=== PATIENT | male | born 2000 | race Caucasian/White ===

== ENCOUNTER 2024-02-04 15:00 | Emergency (ER) | payer OTHER ==
--- OUTSIDE RECORDS SUMMARY | 2024-02-04 15:05 | XMS REPORT | Continuity of Care Document ---
Author Name Unknown Address [address] [place] [address] [place] [address] thconnect Address [address] [facility] [address] [place] [address] Care Team Providers Care Turn Out Name Role Phone FEDEIRCO ORDOÑEZ Attending Clinician Unavailable LEORA GREGORY Attending Clinician Unavailab le LAB90 Attending Clinician Unavailable Payers Payer Name Policy Type Policy Number Effective Date Expirati on Date Source [employer] 2 [id number] 2022 00:00:00 Problems Condition Name Condition Details Condition Category Status Onset Date Resolution Date Last Treatment Date Treating Clinician Comments Source Overweight (BMI 25.0-29.9) Overweight (BMI 25.0-29.9) Disease Active 04-09 00:00: 00 Carlota Seybold - Externa l Elevated liver function tests Elevated liver function tests Disease Active - 00:00: 00 Carlota Seybold - Externa l Attention deficit hyperactiv ity disorder (ADHD), predominan tly inattentiv e type Attention deficit hyperactiv ity disorder (ADHD), predominan tly inattentiv e type Disease Active - 00:00: 00 Carlota Seybold - Externa l Acquired hypothyroi dism Acquired hypothyroi dism Disease Active 2021-08 00:00: 00 Carlota Seybold - Externa l Snoring Snoring Disease Active 2021-08 00:00: 00 Carlota Seybold - Externa l Fatty liver disease, nonalcohol ic Fatty liver disease, nonalcohol ic Disease Active 08-09 00:00: 00 Overview: Formattin g of this note might be different from the original. Confirmed with US Carlota Reid Externa guero Allergies, Adverse Reactions, Alerts Allergy Name Allergy Type Status Severity Reaction(s) Onset Date Inactive Date Treating Clinician Comments Source Azithrom ycin Dihydrat e Propensi ty to adverse reaction s Active Other 2015-08 00:00: 00 MOC is not sure which one of her kids is allergic to this; Mom thinks it was other child who vomited with Zithromax Carlota Flores - Externa l Cefdinir Propensi ty to adverse reaction s Active Rash 2015-08 00:00: 00 Carlota Flores - Externa l Social History Social Habit Start Date Stop Date Quantity Comments Source Gender identity 2023-02-25 16:00:16 Identifies as male gender (finding) Carlota Flores - External Sexual orientation K alan Flores - External History of tobacco use Cigar Smoker Carlota Flores - External History SDOH Alcohol Frequency Carlota reed - External History SDOH Alcohol Std Drinks Carlota briseno - External History SDOH Alcohol Binge Carlota Flores - External Alcohol intake 2023-07-26 00:00:00 2023-07-26 00:00:00 Current drinker of alcohol (finding) Carlota Flores - External History of Social function 2023-04-09 00:00:00 2023-04-09 00:00:00 Carlota Flores - External Alcohol Comment 2022-08-17 00:00:00 2022-08-17 00:00:00 social Carlota Flores - External Sex Assigned At 2000 00:00:00 2000 00:00:00 M Carlota Flores - External Smoking Status Start Date Stop Date Source Tobacco smoking consumption unknown Carlota Reid Ext ernal Occasional tobacco smoker 2022-08-17 00:00:00 Carlota Flores - External Medications Ordered Medication Name Filled Medication Name Start Date Stop Date Current Medication? Ordering Clinician Indication Dosage Frequency Signature (SIG) Comments Components Source Amphetamine -Dextroamph etamine (ADDERALL XR, 20MG,) 20 MG oral Capsule 24 Hour Sustained Release 2022-08 00:00: 00 Yes [id number] 20mg Take 1 capsule (20 mg total) by mouth every morning. Carlota jack Amphetamine -Dextroamph etamine (ADDERALL XR, 20MG,) 20 MG oral Capsule 24 Hour Sustained Release 1 1-12 00:00: 00 18 00:00 :00 No [id number] 20mg Take 1 capsule (20 mg total) by mouth every morning. Carlota jack Amphetamine -Dextroamph etamine (ADDERALL XR, 20MG,) 20 MG oral Capsule 24 Hour Sustained Release 2022-0 9-01 00:00: 00 Yes [id number] 20mg Take 1 capsule (20 mg total) by mouth every morning. Carlota jack Amphetamine -Dextroamph etamine (ADDERALL XR, 20MG,) 20 MG oral Capsule 24 Hour Sustained Release 2022-0 7-20 00:00: 00 04-09 00:00 :00 No [id number] 20mg Take 1 capsule (20 mg total) by mouth every morning Carlota jack Levothyroxi ne Sodium 100 MCG oral Tablet 2022-0 7-05 00:00: 00 Yes [id number] 100ug Take 1 tablet (100 mcg total) by mouth daily Carlota jack Amphetamine -Dextroamph etamine 20 MG oral Capsule 24 Hour Sustained Release 2022-0 2-13 00:00: 00 Yes [id number] 20mg Take 1 capsule (20 mg total) by mouth every morning Carlota jack Amphetamine -Dextroamph etamine 10 MG oral Capsule 24 Hour Sustained Release 2022-0 2-09 00:00: 00 09-21 00:00 :00 No [id number] 10mg Take 1 capsule (10 mg total) by mouth every morning Carlota jack Levothyroxi ne Sodium 100 MCG oral Tablet 2022-0 1-10 00:00: 00 Yes [id number] 100ug Take 1 tablet (100 mcg total) by mouth daily Carlota jack Amphetamine -Dextroamph etamine 10 MG oral Capsule 24 Hour Sustained Release 2022-0 1-09 00:00: 00 Yes [id number] 10mg Take 1 capsule (10 mg total) by mouth every morning Carlota Seybold - Externa l Levothyroxi ne Sodium 100 MCG oral Tablet 08-17 00:00: 00 Yes [id number] 100ug Take 1 tablet (100 mcg total) by mouth daily Carlota Flores - Externa l Levothyroxi ne Sodium 100 MCG oral Tablet 08-17 00:00: 00 08-17 00:00 :00 No [id number] 50ug Take 0.5 tablets (50 mcg total) by mouth daily Carlota Torresa l Thyroid 120 MG oral Tablet 2021-08 16:01: 35 05-18 00:00 :00 No 1{tbl} Take 1 tablet by mouth daily Carlota Flores - Briana l Thyroid 120 MG oral Tablet 2021-08 00:00: 00 Yes [id number] 1{tbl} Take 1 tablet by mouth daily Carlota Flores - Externa l Immunizations Ordered Immunization Name Filled Immunization Name Date Status Comments Source Influenza Virus Vaccine, No Preserv, age 6 months and up 2019-05-10 00:00:00 Completed Carlota Flores - External Influenza Virus Vaccine, No Preserv, age 6 months and up 2019-05-10 00:00:00 Completed Carlota Flores - External Influenza Virus Vaccine, No Preserv, age 6 months and up 2019-05-10 00:00:00 Completed Carlota Flores - External Influenza Virus Vaccine, No Preserv, age 6 months and up 2019-05-10 00:00:00 Completed Carlota Flores - External Meningococcal Vaccine- Conjugate(Menactra) 2018-11-24 00:00:00 Completed Carlota Flores - External Meningococcal Vaccine- Conjugate(Menactra) 2018-11-24 00:00:00 Completed Carlota Flores - External Meningococcal Vaccine- Conjugate(Menactra) 2018-11-24 00:00:00 Completed Carlota Flores - External Meningococcal Vaccine- Conjugate(Menactra) 2018-11-24 00:00:00 Completed Carlota Flores - External DTaP Unspecified 2013-10-02 00:00:00 Completed Carlota Flores - External DTaP Unspecified 2013-10-02 00:00:00 Completed Carlota Seybold - External Meningococcal Vaccine- Conjugate(Menactra) 2013-10-02 00:00:00 Completed Carlota Schneiderold - External Tdap- (Boostrix, Adacel) 2013-10-02 00:00:00 Completed Carlota Lealybold - External DTaP Unspecified 2013-10-02 00:00:00 Completed Carlota Lealybold - External Meningococcal Vaccine- Conjugate(Menactra) 2013-10-02 00:00:00 Completed Carlota Schneiderold - External Tdap- (Boostrix, Adacel) 2013-10-02 00:00:00 Completed Carolta Seybold - External Meningococcal Vaccine- Conjugate(Menactra) 2013-10-02 00:00:00 Completed Carlota Seybold - External Tdap- (Boostrix, Adacel) 2013-10-02 00:00:00 Completed Carlota Schneiderold - External DTaP Unspecified 2013-10-02 00:00:00 Completed Carlota Flores - External Meningococcal Vaccine- Conjugate(Menactra) 2013-10-02 00:00:00 Completed Carlota Schneiderold - External Tdap- (Boostrix, Adacel) 2013-10-02 00:00:00 Completed Carlota Schneiderold - External Varicella Vaccine 2007-10-11 00:00:00 Completed Carlota Schneiderold - External Varicella Vaccine 2007-10-11 00:00:00 Completed Carlota Schneiderold - External Varicella Vaccine 2007-10-11 00:00:00 Completed Carlota Schneiderold - External Varicella Vaccine 2007-10-11 00:00:00 Completed Carlota Flores - External Polio Vaccine 2006-10-05 00:00:00 Completed Carlota Flores - External DTaP Unspecified 2006-10-05 00:00:00 Completed Carlota Flores - External MMR- Measles, Mumps, Rubella 2006-10-05 00:00:00 Completed Carlota Flores - External IPV- Inactivated Polio Vaccine 2006-10-05 00:00:00 Completed Carlota Schneiderold - External DTaP 2006-10-05 00:00:00 Completed Carlota Schneiderold - External Polio Vaccine 2006-10-05 00:00:00 Completed Carlota Flores - External DTaP Unspecified 2006-10-05 00:00:00 Completed Carlota Seybold - External DTaP Unspecified 2006-10-05 00:00:00 Completed Carlota Seybold - External MMR- Measles, Mumps, Rubella 2006-10-05 00:00:00 Completed Carlota Seybold - External IPV- Inactivated Polio Vaccine 2006-10-05 00:00:00 Completed Carlota Seybold - External DTaP 2006-10-05 00:00:00 Completed Carlota Seybold - External Polio Vaccine 2006-10-05 00:00:00 Completed Carlota Seybold - External MMR- Measles, Mumps, Rubella 2006-10-05 00:00:00 Completed Carlota Seybold - External IPV- Inactivated Polio Vaccine 2006-10-05 00:00:00 Completed Carlota Seybold - External DTaP Unspecified 2006-10-05 00:00:00 Completed Carlota Seybold - External MMR- Measles, Mumps, Rubella 2006-10-05 00:00:00 Completed Carlota Seybold - External IPV- Inactivated Polio Vaccine 2006-10-05 00:00:00 Completed Carlota Seybold - External DTaP 2006-10-05 00:00:00 Completed Carlota Lealybold - External HEPATITIS A- PEDI/ADOL 2006-03-02 00:00:00 Completed Carlota Seybold - External HEPATITIS A- PEDI/ADOL 2006-03-02 00:00:00 Completed Carlota Seybold - External HEPATITIS A- PEDI/ADOL 2006-03-02 00:00:00 Completed Carlota Lealybold - External HEPATITIS A- PEDI/ADOL 2006-03-02 00:00:00 Completed Carlota Seybold - External HEPATITIS A- PEDI/ADOL 2005-08-31 00:00:00 Completed Carlota Flores - External Pneumococcal Vaccine, Conjugate 7 2005-08-31 00:00:00 Completed Carlota Lealybold - External Pneumococcal Vaccine, Conjugate 13 2005-08-31 00:00:00 Completed Carlota Seybold - External HEPATITIS A- PEDI/ADOL 2005-08-31 00:00:00 Completed Carlota Lealybold - External Pneumococcal Vaccine, Conjugate 7 2005-08-31 00:00:00 Completed Carlota Lealybold - External HEPATITIS A- PEDI/ADOL 2005-08-31 00:00:00 Completed Carlota Flores - External Pneumococcal Vaccine, Conjugate 13 2005-08-31 00:00:00 Completed Carlota Schneiderold - External Pneumococcal Vaccine, Conjugate 7 2005-08-31 00:00:00 Completed Carlota Flores - External HEPATITIS A- PEDI/ADOL 2005-08-31 00:00:00 Completed Carlota Schneiderold - External Pneumococcal Vaccine, Conjugate 7 2005-08-31 00:00:00 Completed Carlota Flores - External Pneumococcal Vaccine, Conjugate 13 2005-08-31 00:00:00 Completed Carlota Seybold - External DTaP Unspecified 2004-03-10 00:00:00 Completed Carlota Lealybold - External HIB- Haemophilus Influenzae Type B 2004-03-10 00:00:00 Completed Carlota Seybold - External DTaP Unspecified 2004-03-10 00:00:00 Completed Carlota Seybold - External DTaP 2004-03-10 00:00:00 Completed Carlota Seybold - External DTaP Unspecified 2004-03-10 00:00:00 Completed Carlota Seybold - External HIB- Haemophilus Influenzae Type B 2004-03-10 00:00:00 Completed Carlota Seybold - External DTaP 2004-03-10 00:00:00 Completed Carlota Seybold - External HIB- Haemophilus Influenzae Type B 2004-03-10 00:00:00 Completed Carlota Seybold - External DTaP Unspecified 2004-03-10 00:00:00 Completed Carlota Seybold - External HIB- Haemophilus Influenzae Type B 2004-03-10 00:00:00 Completed Carlota Seybold - External DTaP 2004-03-10 00:00:00 Completed Carlota Seybold - External MMR- Measles, Mumps, Rubella 2003-12-11 00:00:00 Completed Carlota Seybold - External MMR- Measles, Mumps, Rubella 2003-12-11 00:00:00 Completed Carlota Seybold - External MMR- Measles, Mumps, Rubella 2003-12-11 00:00:00 Completed Carlota Seybold - External MMR- Measles, Mumps, Rubella 2003-12-11 00:00:00 Completed Carlota Lealybold - External Polio Vaccine 2003-09-10 00:00:00 Completed Carlota Schneiderold - External IPV- Inactivated Polio Vaccine 2003-09-10 00:00:00 Completed Carlota Seybold - External Varicella Vaccine 2003-09-10 00:00:00 Completed Carlota Seybold - External Polio Vaccine 2003-09-10 00:00:00 Completed Carlota Setankold - External IPV- Inactivated Polio Vaccine 2003-09-10 00:00:00 Completed Carlota Setankold - External Varicella Vaccine 2003-09-10 00:00:00 Completed Carlota Seybold - External Polio Vaccine 2003-09-10 00:00:00 Completed Carlota Seybold - External IPV- Inactivated Polio Vaccine 2003-09-10 00:00:00 Completed Carlota Seybold - External Varicella Vaccine 2003-09-10 00:00:00 Completed Carlota Seybold - External IPV- Inactivated Polio Vaccine 2003-09-10 00:00:00 Completed Carlota Lealybold - External Varicella Vaccine 2003-09-10 00:00:00 Completed Carlota Flores - External Hepatitis B, Adolescent Or Pediatric 2003-06-07 00:00:00 Completed Carlota Schneiderold - External Hepatitis B, Adolescent Or Pediatric 2003-06-07 00:00:00 Completed Carlota Schneiderold - External Hepatitis B, Adolescent Or Pediatric 2003-06-07 00:00:00 Completed Carlota Schneiderold - External Hepatitis B, Adolescent Or Pediatric 2003-06-07 00:00:00 Completed Carlota Flores - External DTaP Unspecified 2003-04-02 00:00:00 Completed Carlota Flores - External HIB- Haemophilus Influenzae Type B 2003-04-02 00:00:00 Completed Carlota Flores - External Pneumococcal Vaccine, Conjugate 7 2003-04-02 00:00:00 Completed Carlota Flores - External DTaP Unspecified 2003-04-02 00:00:00 Completed Carlota Flores - External DTaP 2003-04-02 00:00:00 Completed Carlota Schneiderold - External Pneumococcal Vaccine, Conjugate 13 2003-04-02 00:00:00 Completed Carlota Flores - External DTaP Unspecified 2003-04-02 00:00:00 Completed Carlota Flores - External HIB- Haemophilus Influenzae Type B 2003-04-02 00:00:00 Completed Carlota Seybold - External Pneumococcal Vaccine, Conjugate 7 2003-04-02 00:00:00 Completed Carlota Seybold - External DTaP 2003-04-02 00:00:00 Completed Carlota Seybold - External Pneumococcal Vaccine, Conjugate 13 2003-04-02 00:00:00 Completed Carlota Seybold - External HIB- Haemophilus Influenzae Type B 2003-04-02 00:00:00 Completed Carlota Seybold - External Pneumococcal Vaccine, Conjugate 7 2003-04-02 00:00:00 Completed Carlota Seybold - External DTaP Unspecified 2003-04-02 00:00:00 Completed Carlota Seybold - External HIB- Haemophilus Influenzae Type B 2003-04-02 00:00:00 Completed Carlota Seybold - External Pneumococcal Vaccine, Conjugate 7 2003-04-02 00:00:00 Completed Carlota Seybold - External DTaP 2003-04-02 00:00:00 Completed Carlota Seybold - External Pneumococcal Vaccine, Conjugate 13 2003-04-02 00:00:00 Completed Carlota Seybold - External DTaP Unspecified 2003-01-30 00:00:00 Completed Carlota Seybold - External HIB- Haemophilus Influenzae Type B 2003-01-30 00:00:00 Completed Carlota Seybold - External IPV- Inactivated Polio Vaccine 2003-01-30 00:00:00 Completed Carlota Seybold - External DTaP 2003-01-30 00:00:00 Completed Carlota Seybold - External Polio Vaccine 2003-01-30 00:00:00 Completed Carlota Seybold - External DTaP Unspecified 2003-01-30 00:00:00 Completed Carlota Seybold - External DTaP Unspecified 2003-01-30 00:00:00 Completed Carlota Seybold - External HIB- Haemophilus Influenzae Type B 2003-01-30 00:00:00 Completed Carlota Seybold - External IPV- Inactivated Polio Vaccine 2003-01-30 00:00:00 Completed Carlota Seybold - External DTaP 2003-01-30 00:00:00 Completed Carlota Seybold - External Polio Vaccine 2003-01-30 00:00:00 Completed Carlota Seybold - External HIB- Haemophilus Influenzae Type B 2003-01-30 00:00:00 Completed Carlota Seybold - External IPV- Inactivated Polio Vaccine 2003-01-30 00:00:00 Completed Carlota Seybold - External DTaP Unspecified 2003-01-30 00:00:00 Completed Carlota Seybold - External HIB- Haemophilus Influenzae Type B 2003-01-30 00:00:00 Completed Carlota Seybold - External IPV- Inactivated Polio Vaccine 2003-01-30 00:00:00 Completed Carlota Seybold - External DTaP 2003-01-30 00:00:00 Completed Carlota Seybold - External Polio Vaccine 2003-01-30 00:00:00 Completed Carlota Seybold - External DTaP Unspecified 2002 00:00:00 Completed Carlota Seybold - External Hepatitis B, Adolescent Or Pediatric 2002 00:00:00 Completed Carlota Seybold - External HIB- Haemophilus Influenzae Type B 2002 00:00:00 Completed Carlota Seybold - External IPV- Inactivated Polio Vaccine 2002 00:00:00 Completed Carlota Seybold - External DTaP 2002 00:00:00 Completed Carlota Seybold - External Polio Vaccine 2002 00:00:00 Completed Carlota Seybold - External DTaP Unspecified 2002 00:00:00 Completed Carlota Seybold - External DTaP Unspecified 2002 00:00:00 Completed Carlota Lealybold - External Hepatitis B, Adolescent Or Pediatric 2002 00:00:00 Completed Carlota Seybold - External HIB- Haemophilus Influenzae Type B 2002 00:00:00 Completed Carlota Seybold - External IPV- Inactivated Polio Vaccine 2002 00:00:00 Completed Carlota Seybold - External DTaP 2002 00:00:00 Completed Carlota Seybold - External Polio Vaccine 2002 00:00:00 Completed Carlota Seybold - External Hepatitis B, Adolescent Or Pediatric 2002 00:00:00 Completed Carlota Seybold - External HIB- Haemophilus Influenzae Type B 2002 00:00:00 Completed Carlota Seybold - External IPV- Inactivated Polio Vaccine 2002 00:00:00 Completed Carlota Seybold - External DTaP Unspecified 2002 00:00:00 Completed Carlota Seybold - External Hepatitis B, Adolescent Or Pediatric 2002 00:00:00 Completed Carlota Seybold - External HIB- Haemophilus Influenzae Type B 2002 00:00:00 Completed Carlota Lealybold - External IPV- Inactivated Polio Vaccine 2002 00:00:00 Completed Carlota Seybold - External DTaP 2002 00:00:00 Completed Carlota Seybold - External Polio Vaccine 2002 00:00:00 Completed Carlota Seybold - External DTaP Unspecified 2002 00:00:00 Completed Carlota Seybold - External DTaP Unspecified 2002 00:00:00 Completed Carlota Seybold - External DTaP Unspecified 2002 00:00:00 Completed Carlota Seybold - External DTaP Unspecified 2002 00:00:00 Completed Carlota Seybold - External Hepatitis B, Adolescent Or Pediatric 2002 00:00:00 Completed Carlota Seybold - External Hepatitis B, Adolescent Or Pediatric 2002 00:00:00 Completed Carlota Seybold - External Hepatitis B, Adolescent Or Pediatric 2002 00:00:00 Completed Carlota Seybold - External Hepatitis B, Adolescent Or Pediatric 2002 00:00:00 Completed Carlota Seybold - External DTaP Unspecified Unknown Completed Jose Juan sey Seybold - External DTaP Unspecified Unknown Completed Jose Juan sey Seybold - External DTaP Unspecified Unknown Completed Jose Juan sey Seybold - External DTaP Unspecified Unknown Completed Jose Juan sey Seybold - External DTaP Unspecified Unknown Completed Jose Juan sey Seybold - External DTaP Unspecified Unknown Completed Jose Juan sey Seybold - External DTaP Unspecified Unknown Completed Jose Juan lealy Seybold - External Influenza Virus Vaccine, No Preserv, age 6 months and up Unknown Completed Carlota Tran eybold - External HEPATITIS A- PEDI/ADOL Unknown Completed Carlota Seybold - External HEPATITIS A- PEDI/ADOL Unknown Completed Carlota Seybold - External Hepatitis B, Adolescent Or Pediatric Unknown Completed Carlota Seybold - External Hepatitis B, Adolescent Or Pediatric Unknown Completed Carlota ybold - External Hepatitis B, Adolescent Or Pediatric Unknown Completed Carlota Seybold - External HIB- Haemophilus Influenzae Type B Unknown Completed Carlota Leal bold - External HIB- Haemophilus Influenzae Type B Unknown Completed Carlota [facility] bold - External HIB- Haemophilus Influenzae Type B Unknown Completed Carlota Leal bold - External HIB- Haemophilus Influenzae Type B Unknown Completed Carlota Leal bold - External Meningococcal Vaccine- Conjugate(Menactra) Unknown Completed [facility] eybold - External Meningococcal Vaccine- Conjugate(Menactra) Unknown Completed [facility] eybold - External MMR- Measles, Mumps, Rubella [facility]- Meas[facility], Mumps, Rubella Unknown Completed [facility] - External Pneumococcal Vaccine, Conjugate 7 Unknown Completed Carlota [facility] - External Pneumococcal Vaccine, Conjugate 7 Unknown [facility]- Inactivated Polio Vaccine Unknown [facility]- Inactivated Polio Vaccine Unknown Completed [facility] - External IPV- Inactivated [facility]ine [facility]- [facility] Vaccine Unknown Completed Carlota [facility] - External Tdap- (Boostrix, Adacel) Unknown [facility] Varicella Vaccine Unknown Completed lsey Seybold - External Varicella Vaccine Unknown Completed lsey Seybold - External DTaP Unknown Completed Carlota Byrd bold - External DTaP Unknown Completed Carlota Byrd bold - External DTaP Unknown Completed Carlota Leal bold - External DTaP Unknown Completed Carlota [facility] bold - External DTaP Unknown Completed Carlota Leal brianna - External Pneumococcal Vaccine, Conjugate 13 Unknown [facility] Pneumococcal Vaccine, Conjugate 13 Unknown Completed Carloat ybold - External Polio Vaccine [facility] Unknown Completed Carlota Seybold - External Polio Vaccine Unknown [facility] External Covid-19 Vaccine ([employer]) Unknown [facility] Covid-19 Vaccine ([employer]), Mrna-lnp, Fredy Protein, Pf, 30mcg/0.3ml,IM Unknown Completed Carlota [facility] - External Vital Signs Vital Name Observation Time Observation Value Comments S ource Systolic blood pressure 2023-07-26 19:22:00 140 mm[Hg] Carlota Seybo ld - External Diastolic blood pressure 2023-07-26 19:22:00 86 mm[Hg] Carlota Seybo ld - External Heart rate 2023-07-26 19:22:00 89 /min Kelse y Seybold - External Body temperature 2023-07-26 19:22:00 36.56 Cate Carlota Seybold - External Respiratory rate 2023-07-26 19:22:00 20 /min Carlota Seybold - External Body height 2023-07-26 19:22:00 185.4 cm Elvia ey Seybold - External Body weight 2023-07-26 19:22:00 101.606 kg Elvia ey Seybold - External BMI 2023-07-26 19:22:00 29.55 kg/m2 Elvia ey Seybold - External Oxygen saturation in Arterial blood by Pulse oximetry 2023-07-26 19:22:00 99 /min Carlota Seybo ld - External Body height 2023-04-09 18:21:00 185.4 cm Elvia ey Seybold - External Body weight 2023-04-09 18:21:00 101.606 kg Elvia ey Seybold - External BMI 2023-04-09 18:21:00 29.55 kg/m2 Elvia ey Seybold - External Oxygen saturation in Arterial blood by Pulse oximetry 2023-04-09 18:21:00 98 /min Carlota Seybo ld - External Systolic blood pressure 2023-04-09 18:21:00 108 mm[Hg] Carlota Seybo ld - External Diastolic blood pressure 2023-04-09 18:21:00 69 mm[Hg] Carlota Seybo ld - External Heart rate 2023-04-09 18:21:00 82 /min Kelse y Seybold - External Body temperature 2023-04-09 18:21:00 35.83 Cate Carlota Seybold - External Respiratory rate 2023-04-09 18:21:00 16 /min Carlota Seybold - External Systolic blood pressure 2022-08-17 19:36:00 134 mm[Hg] Carlota Seybo ld - External Diastolic blood pressure 2022-08-17 19:36:00 72 mm[Hg] Carlota Knowles ld - External Heart rate 2022-08-17 19:36:00 76 /min Gabriel Flores - External Body temperature 2022-08-17 19:36:00 36.89 Cate Carlota Flores - External Respiratory rate 2022-08-17 19:36:00 16 /min Carlota Flores - External Body height 2022-08-17 19:36:00 185.4 cm Elvia Flores - External Body weight 2022-08-17 19:36:00 110.224 kg Elvia marie Seybold - External BMI 2022-08-17 19:36:00 32.06 kg/m2 Elvia Schneiderold - External Encounters Start Date/Time End Date/Time Encounter Type Admission Type [facility] Department Encounter ID Source 2024-02-17 15:30:00 2024-02-17 15:30:00 Outpatient FEDERICO ORDOÑEZ [id number] Carlota Lealybmarlon 2024-02-07 08:30:00 2024-02-07 08:30:00 Outpatient LEORA GREGORY [id number] [facility]ota Lealybmarlon 2024-02-04 00:00:00 2024-02-04 00:00:00 Outpatient LEORA GREGORY [id number] Carlota Lealybmarlon 2024-01-10 00:00:00 2024-01-10 00:00:00 Outpatient FEDERICO ORDOÑEZ [id number] Carlota ybmarlon 2024-01-04 00:00:00 2024-01-04 00:00:00 Outpatient FEDERICO ORDOÑEZ [id number] Carlota Seybmarlon 2024-01-04 00:00:00 2024-01-04 00:00:00 Outpatient FEDERICO ORDOÑEZ [id number] Carlota Seybold 2024-01-03 00:00:00 2024-01-03 00:00:00 Outpatient FEDERICO ORDOÑEZ [id number] Carlota ybmarlon 2023-12-29 15:30:00 2023-12-29 15:30:00 Outpatient PREZAS, FEDERICO FRIEDMAN [place] [id number] [facility] 2023-12-03 00:00:00 2023-12-03 00:00:00 Outpatient PREZAS, FEDERICO FRIEDMAN [place] [id number] [facility] 2023-12-03 00:00:00 2023-12-03 00:00:00 Outpatient PREZAS, FEDERICO FRIEDMAN [place] [id number] [facility] 2023-11-02 00:00:00 2023-11-02 00:00:00 Outpatient PREZAS, FEDERICO FRIEDMAN [place] [id number] [facility] 2023-10-15 09:30:00 2023-10-15 09:30:00 Outpatient PREZAS, FEDERICO FRIEDMAN [place] [id number] [facility] 2023-10-04 00:00:00 2023-10-04 00:00:00 Outpatient PREZAS, FEDERICO NOELDAVID [facility] [id number] [facility]:00 2023-09-28 00:00:00 Outpatient PREZAS, FEDERICO NOELDAVID FRIEDMAN [id number] [facility] 2023-09-28 00:00:00 2023-09-28 00:00:00 Outpatient PREZAS, FEDERICO FRIEDMAN [place] [id number] [facility]01 00:00:00 2023-09-01 00:00:00 Outpatient PREZAS, FEDERICO NOELDAVID FRIEDMAN [id number] [facility] 2023-07-26 13:30:00 2023-07-26 13:30:00 Outpatient PREZAS, FEDERICO [place] FRIEDMAN [id number] [facility] 2023-06-17 00:00:00 2023-06-17 00:00:00 Outpatient PREZAS, FEDERICO [place] FRIEDMAN [id number] [facility] 2023-05-17 00:00:00 2023-05-17 00:00:00 Outpatient PREZAS, FEDERICO [place] FRIEDMAN [id number] [facility] 2023-05-15 00:00:00 2023-05-15 00:00:00 Outpatient PREZAS, FEDERICO NOELSEY [id number] [facility] 2023-04-13 00:00:00 2023-04-13 00:00:00 Outpatient PREZAS, FEDERICO FRIEDMAN [id number] [facility] 2023-04-09 14:15:00 2023-04-09 14:15:00 Outpatient LAB90 CARLOTA CARLOTA [id number] [facility] 2023-04-09 13:30:00 2023-04-09 13:30:00 Outpatient PREZAS, FEDERICO NOELSEY [id number] [facility] 2023-02-25 00:00:00 2023-02-25 00:00:00 Outpatient PREZAS, FEDERICO NOELSEY [id number] [facility] 2023-02-10 00:00:00 2023-02-10 00:00:00 Outpatient PREZAS, FEDERICO FRIEDMAN CARL[place] [id number] [facility] 2022-12-25 00:00:00 2022-12-25 00:00:00 Outpatient PREZAS, FEDERICO FRIEDMAN [place] [id number] [facility] 00:00:00 2022-11-25 00:00:00 Outpatient PREZAS, FEDERICO FRIEDMAN [place] [id number] [facility]-24 00:00:00 2022-11-24 00:00:00 Outpatient PREZAS, FEDERICO FRIEDMAN [place] [id number] [facility] 2022-11-21 00:00:00 2022-11-21 00:00:00 Outpatient PREZAS, FEDERICO FRIEDMAN [place] [id number] [facility] 2022-10-22 10:15:00 2022-10-22 10:15:00 Outpatient LAB90 CARL[place] CARLOTA [id number] [facility] 2022-10-22 00:00:00 2022-10-22 00:00:00 Outpatient PREZAS, FEDERICO NOELDAVID FRIEDMAN [id number] [facility] 2022-10-22 00:00:00 2022-10-22 00:00:00 Outpatient PREZAS, FEDERICO FRIEDMAN [id number] [facility] 2022-09-21 09:00:00 2022-09-21 09:00:00 Outpatient PREZAS, FEDERICO FRIEDMAN [id number] [facility] 2022-09-17 00:00:00 2022-09-17 00:00:00 Outpatient PREZAS, FEDERICO FRIEDMAN [place] [id number] [facility] 2022-09-16 00:00:00 2022-09-16 00:00:00 Outpatient PREZAS, FEDERICO FRIEDMAN [id number] [facility] 2022-09-16 00:00:00 2022-09-16 00:00:00 Outpatient PREZAS, FEDERICO FRIEDMAN [place] [id number] [facility] 2022-09-16 00:00:00 2022-09-16 00:00:00 Outpatient PREZAS, FEDERICO FRIEDMAN [place] [id number] [facility]22-09-11 16:15:00 2022-09-11 16:15:00 Outpatient PREZAS, FEDERICO FRIEDMAN [place] [id number] [facility] 2022-08-18 00:00:00 2022-08-18 00:00:00 Outpatient PREZAS, FEDERICO FRIEDMAN [place] [id number] [facility]22-08-18 00:00:00 2022-08-18 00:00:00 Outpatient PREZAS, FEDERICO FRIEDMAN [place] [id number] [facility] 2022-08-17 14:15:00 2022-08-17 14:15:00 Outpatient LABFarnaz FRIEDMAN [place] [id number] [facility] 2022-08-17 13:45:00 2022-08-17 13:45:00 Outpatient PREZAS, FEDERICO FRIEDMAN CAR[place] [id number] [facility] 2022-05-18 15:30:00 2022-05-18 15:30:00 Outpatient PREZAS, FEDERICO [place] FRIEDMAN [id number] [facility] 2022-05-15 14:15:00 2022-05-15 14:15:00 Outpatient FEDERICO ORDOÑEZ [id number] Carlota Flores 2022-05-11 08:15:00 2022-05-11 08:15:00 Outpatient FEDERICO ORDOÑEZ [id number] Carlota Flores
[2024-02-04] MEDS ORDERED: LABETALOL 20 MG/4ML SYRINGE IV ONE (16:15)
[2024-02-04] MEDS ORDERED: ASPIRIN 81 MG CHEWABLE TABLET ONE (16:15)
[2024-02-04 16:17] LABS: Absolute Eosinophils 0.1 K/uL (0-0.5); Absolute Lymphocytes (CBC) 1.3 K/uL (0.7-4.9); Absolute Monocytes 0.5 K/uL (0.1-1.3); Absolute Neutrophil 2.8 K/uL (1.8-8.0); Basophils % 0.4 % (0-1.3); Eosinophils % 1.6 % (0-4.4); Hematocrit 42.5 % (39.6-49.0); Hemoglobin 14.7 g/dL (13.6-17.9); Lymphocytes % 28.1 % (15.3-44.8); MCH 30.4 pg (27.0-35.0); MCHC 34.5 g/dL (32.0-36.0); MPV 7.8 fL (7.6-11.3); Monocytes % 9.7 % (3.3-12.3); Neutrophils % 60.2 % (41.7-73.7); Nucleated Red Blood Cells % 0.4 % (0-0); Platelets 135 thou/uL (152-406); RBC Red Blood Cell Count 4.83 M/uL (4.33-5.43); Red Cell Distribution Width 12.6 % (12.1-15.2)
[2024-02-04 16:20] LABS: PT Prothrombin Time 12.3 SECONDS (9.4-12.5); Protime INR 1.12
[2024-02-04 16:39] LABS: Albumin 3.9 g/dL (3.4-5.0); Anion Gap 8.7 mEq/L (5.0-15.0); Bilirubin Direct 0.2 mg/dL (0-0.2); Bilirubin Indirect, Calculated 0.4 mg/dL (0.2-0.8); Bilirubin Total 0.6 mg/dL (0.2-1.0); Globulin 3.8 g/dL (2.3-3.5); Magnesium 2.2 mg/dL (1.6-2.4); Potassium 3.7 mEq/L (3.5-5.1); Protein, Total 7.7 g/dL (6.4-8.2); Troponin High Sensitivity 4.1 pg/mL (<58.9)
--- NOTE | 2024-02-04 16:44 | RAD REPORT ---
EXAM DESCRIPTION: Nicki Single View02/04/2024 4:05 pm CLINICAL HISTORY: Chest pain COMPARISON: 2012 FINDINGS: The lungs appear clear of acute infiltrate. The heart is normal size IMPRESSION: No acute abnormalities displayed
[2024-02-04 18:52] LABS: Barbiturates NEGATIVE (NEGATIVE); Benzodiazepines NEGATIVE (NEGATIVE); Cocaine NEGATIVE (NEGATIVE); METHAMPHETAM NEGATIVE (NEGATIVE); Methadone NEGATIVE (NEGATIVE); Opiates NEGATIVE (NEGATIVE); Phencyclidine NEGATIVE (NEGATIVE); THC Cannibis NEGATIVE (NEGATIVE)
--- NOTE | 2024-02-04 19:10 | RAD REPORT ---
EXAM DESCRIPTION: CT - Chest For Pe Angio - 02/04/2024 6:51 pm CLINICAL HISTORY: Chest pain COMPARISON: None. TECHNIQUE: Dynamically enhanced axial 3 mm thick images of the chest were obtained during administra tion of 100 mL Isovue 370 IV contrast. Coronal and oblique reconstruction images were generated and r eviewed. Exam utilizes a protocol for optimal evaluation of pulmonary arterial tree. Maximum intensity projections 3D imaging was utilized All CT scans are performed using dose optimization technique as appropriate and may include automated exposure control or mA/KV adjustment according to patient size. FINDINGS: Suboptimal opacification of pulmonary arteries. No gross pulmonary embolus seen A thoracic aortic aneurysm is not noted. A pleural effusion is not seen. A pericardial effusion is not seen. A lung consolidation is not present. Fatty liver IMPRESSION: No gross pulmonary embolus seen
--- NOTE | 2024-02-04 20:46 | EDPHYS ---
Physician Documentation [facility] Name: Corey Marti Age: 23 yrs Sex: Male : 2000 Arrival Date: 02/04/2024 Time: 15:00 Bed 20 Private MD: ED Physician Jones Villanueva HPI: 02/03 16:00 This 23 yrs old Male presents to ER via Ambulatory with complaints of Blood Pressure cp Problem. 16:00 The patient or guardian reports chest pain that is located primarily in the anterior cp chest wall, left. The pain does not radiate. 16:00 Patient presents to ED with c/o chest pain since yesterday, palpitations last week and cp elevated blood pressure today. Patient with no PMHX for htn. Historical: - Allergies: 15:15 No Known Allergies; aa5 - Home Meds: 15:15 levothyroxine oral [Active]; Adderall XR Oral [Active]; aa5 - PMHx: 15:15 Hypothyroidism; adhd; aa5 - PSHx: 15:16 None; aa5 - Immunization history:: Adult Immunizations up to date. - Infectious Disease History:: Denies. - Social history:: Smoking status: Patient denies any tobacco usage or history of. ROS: 16:05 Constitutional: Negative for body aches, chills, fever, poor PO intake, cp 16:05 Eyes: Negative for injury, pain, redness, and discharge, cp 16:05 ENT: Negative for drainage from ear(s), ear pain, sore throat, difficulty swallowing, difficulty handling secretions, 16:05 Cardiovascular: Positive for chest pain, 16:05 Respiratory: Negative for cough, shortness of breath, wheezing, 16:05 Abdomen/GI: Negative for abdominal pain, nausea, vomiting, and diarrhea, 16:05 Neuro: Negative for altered mental status, dizziness, headache, syncope, weakness, 16:05 All other systems are negative, Exam: 16:10 Constitutional: The patient appears in no acute distress, alert, awake, cp non-diaphoretic, non-toxic, well developed, well nourished, 16:10 Head/Face: Normocephalic, atraumatic. cp 16:10 Eyes: Periorbital structures: appear normal, Conjunctiva: normal, no exudate, no injection, Sclera: no appreciated abnormality, Lids and lashes: appear normal, bilaterally, 16:10 ENT: External ear(s): are unremarkable, Nose: is normal, Mouth: Lips: moist, Oral mucosa: pink and intact, moist, Posterior pharynx: is normal, airway is patent, no erythema, no exudate, 16:10 Neck: ROM/movement: is normal, is supple, without pain, no range of motions limitations, 16:10 Chest/axilla: Inspection: normal, Palpation: is normal, no crepitus, no tenderness, 16:10 Cardiovascular: Rate: tachycardic, Rhythm: regular, Edema: is not appreciated, JVD: is not appreciated, 16:10 Respiratory: the patient does not display signs of respiratory distress, Respirations: normal, no use of accessory muscles, no retractions, labored breathing, is not present, Breath sounds: are clear throughout, no decreased breath sounds, no stridor, no wheezing, 16:10 Abdomen/GI: Inspection: abdomen appears normal, Palpation: abdomen is soft and non-tender, in all quadrants, 16:10 Back: pain, is absent, ROM is normal, 16:10 Neuro: Orientation: to person, place \T\ time. Mentation: is normal, Cerebellar function: is grossly normal, Motor: moves all fours, strength is normal, Sensation: is normal, 16:45 ECG was reviewed by the Attending Physician. Vital Signs: 15:10 BP 163 / 99; Pulse 102; Resp 18 S; Pulse Ox 99% on R/A; Weight 99.79 kg (R); Height 6 aa5 ft. 2 in. (R); 16:00 BP 146 / 96; Pulse 88; Resp 16; Pulse Ox 100% ; Pain 4/10; nj1 17:44 BP 137 / 95; Pulse 85; Resp 16; Pulse Ox 100% on R/A; nj1 19:05 BP 139 / 83; Pulse 90; Resp 14; Pulse Ox 99% ; nj1 20:17 BP 138 / 96; Pulse 96; Resp 18; Pulse Ox 100% ; nj1 20:54 BP 135 / 89; Pulse 96; Resp 17; Pulse Ox 98% ; nj1 15:10 Body Mass Index 28.25 (99.79 kg, 187.96 cm) aa5 16:00 Pain Scale: Adult nj1 MDM: 15:12 Patient medically screened. cp 20:46 Data reviewed: vital signs, nurses notes, lab test result(s), EKG, radiologic studies, cp CT scan, plain films, and as a result, I will discharge patient. 20:46 Differential diagnosis: acute myocardial infarction, chest wall pain, pericarditis, cp pleurisy, pneumonia, pneumothorax, pulmonary embolus, thoracic aortic disection. I considered the following discharge prescriptions or medication management in the emergency department Medications were administered in the Emergency Department. See MAR. Independent interpretation of the following test(s) in the Emergency Department EKG: See my EKG interpretation above. Counseling: I had a detailed discussion with the patient and/or guardian regarding the historical points, exam findings, and any diagnostic results supporting the discharge/admit diagnosis, lab results, radiology results, the need for outpatient follow up, a family practitioner, to return to the emergency department if symptoms worsen or persist or if there are any questions or concerns that arise at home. Response to treatment: the patient's symptoms have markedly improved after treatment, and as a result, I will discharge patient. 02/03 15:53 Order name: Basic Metabolic Panel; Complete Time: 17:41 cp 02/03 15:53 Order name: CBC with Diff; Complete Time: 17:41 cp 02/03 17:41 Interpretation: Normal except: PLT 135. cp 02/03 15:53 Order name: LFT's; Complete Time: 17:41 cp 02/03 17:41 Interpretation: Normal except: ALT 101; GLOB 3.8; A/G 1.0. cp 02/03 15:53 Order name: Magnesium; Complete Time: 17:41 cp 02/03 15:53 Order name: PT-INR; Complete Time: 17:41 cp 02/03 15:53 Order name: Troponin HS; Complete Time: 17:41 cp 02/03 15:53 Order name: UDS; Complete Time: 19:45 cp 02/03 16:17 Order name: D-Dimer; Complete Time: 18:20 EDMS 02/03 19:45 Order name: Troponin HS; Complete Time: 20:40 cp 02/03 15:53 Order name: XRAY Chest (1 view); Complete Time: 17:41 cp 02/03 18:21 Order name: CT Chest For PE Angio; Complete Time: 19:45 cp 02/03 15:53 Order name: EKG; Complete Time: 15:54 cp 02/03 15:53 Order name: Cardiac monitoring; Complete Time: 16:11 02/03 15:53 Order name: EKG - Nurse/Tech; Complete Time: 16:53 cp 02/03 15:53 Order name: IV Saline Lock; Complete Time: 16:11 cp 02/03 15:53 Order name: Labs collected and sent; Complete Time: 16:11 02/03 15:53 Order name: O2 Per Protocol; Complete Time: 16:11 02/03 15:53 Order name: O2 Sat Monitoring; Complete Time: 16:11 cp EC:45 Rate is 83 beats/min. Rhythm is regular. [place] interval is normal. QRS interval is cp prolonged at 112 msec. QT interval is normal. T waves are Inverted in lead aVR. Interpreted by me. Reviewed by me. Administered Medications: 16:25 Drug: Labetalol IV 10 mg IV at calculated rate once over 2 mins; For SBP greater than kj2 140. Hold for HR less than 60, notify provider. Route: IV; Rate: calculated rate; Infused Over: 2 mins; Site: right antecubital; 16:27 Follow up: Response: No adverse reaction; IV Status: Completed infusion nj1 17:44 Follow up: Response: No adverse reaction; Blood pressure is lowered nj1 16:26 Drug: Aspirin PO Chewable Tablet 324 mg PO once; 81 mg tablets x 4 Route: PO; kj2 17:45 Follow up: Response: No adverse reaction nj1 Disposition: 02/04 07:02 Co-signature as Attending Physician, Jones Villanueva MD I reviewed the patient's care rn provided by the Advanced Practice Provider and agree with the diagnosis and treatment plan. Disposition Summary: 02/04/24 20:46 Discharge Ordered Notes: Location: Home cp Problem: new cp Symptoms: have improved cp Condition: Stable cp Diagnosis - Chest pain, unspecified cp - Elevated blood-pressure reading, without diagnosis of hypertension cp Followup: cp - With: Vikas Mccord DO - When: 2 - 3 days - Reason: Recheck today's complaints Discharge Instructions: - Discharge Summary Sheet cp - Nonspecific Chest Pain, Adult cp - How to Take Your Blood Pressure, Rwsy-ta-Nrrh cp - Aspirin and Your Heart cp - DASH Eating Plan cp - Form - Blood Pressure Record Sheet cp Forms: - Medication Reconciliation Form cp - Antibiotic Education cp - Prescription Opioid Use cp - Patient Portal Instructions cp - Leadership Thank You Letter cp Signatures: Dispatcher [employer] Jones Soliz MD MD rn Calderon, Audri RN RN aa5 Timothy Joshi PA PA cp Jordan, Krystal, RN RN kj2 Jessica Peña RN nj1 Corrections: (The following items were deleted from the chart) 02/03 16:15 15:54 D-DIMER+[id number].BRZ ordered. EDMS EDMS
--- NOTE | 2024-02-04 20:46 | ER ---
Nurse's Notes [facility] Name: Corey Marti Age: 23 yrs Sex: Male : 2000 Arrival Date: 02/04/2024 Time: 15:00 Bed 20 Private MD: Diagnosis: Chest pain, unspecified;Elevated blood-pressure reading, without diagnosis of hypertension Presentation: 02/03 15:10 Chief complaint: Patient states: "I've been having chest tightness and I have a aa5 headache so I took my blood pressure and it was 171/110 yesterday and it's been running high". 15:10 Initial Sepsis Screen: Does the patient meet any 2 criteria? No. Patient's initial aa5 sepsis screen is negative. Does the patient have a suspected source of infection? No. Patient's initial sepsis screen is negative. Risk Assessment: Do you want to hurt yourself or someone else? Patient reports no desire to harm self or others. Onset of symptoms was February 03, 2024. 15:10 Method Of Arrival: Ambulatory aa5 15:10 Acuity: HENRIQUE 3 aa5 15:49 Coronavirus screen: Vaccine status: Patient reports receiving the 2nd dose of the covid nj1 vaccine. Ebola Screen: Patient denies travel to an Ebola-affected area in the 21 days before illness onset. Historical: - Allergies: 15:15 No Known Allergies; aa5 - Home Meds: 15:15 levothyroxine oral [Active]; Adderall XR Oral [Active]; aa5 - PMHx: 15:15 Hypothyroidism; adhd; aa5 - PSHx: 15:16 None; aa5 - Immunization history:: Adult Immunizations up to date. - Infectious Disease History:: Denies. - Social history:: Smoking status: Patient denies any tobacco usage or history of. Screenin:49 [facility] ED Fall Risk Assessment (Adult) History of falling in the last 3 months, nj1 including since admission No falls in past 3 months (0 pts) Confusion or Disorientation No (0 pts) Intoxicated or Sedated No (0 pts) Impaired Gait No (0 pts) Mobility Assist Device Used No (0 pt) Altered Elimination No (0 pt) Score/Fall Risk Level 0 - 2 = Low Risk Oriented to surroundings, Maintained a safe environment, Hourly rounding (assess needs \\T\\ fall precautionary measures) done. Abuse screen: Denies threats or abuse. Denies injuries from another. Nutritional screening: No deficits noted. Tuberculosis screening: No symptoms or risk factors identified. Assessment: 15:45 General: Appears in no apparent distress. comfortable, Behavior is calm, cooperative, nj1 appropriate for age. Pain: Denies pain. Neuro: Level of Consciousness is awake, alert, obeys commands, Oriented to person, place, time, situation, Reports Fatigue, malaise. Cardiovascular: Patient's skin is warm and dry. Respiratory: Reports shortness of breath since yesterday, has improved Airway is patent Respiratory effort is even, unlabored. GI: Reports vomiting. 17:44 Reassessment: Patient appears in no apparent distress at this time. Patient and/or nj1 family updated on plan of care and expected duration. Pain level reassessed. Patient is alert, oriented x 3, equal unlabored respirations, skin warm/dry/pink. 18:51 Reassessment: Not in room, in imaging. nj1 19:06 Reassessment: Patient appears in no apparent distress at this time. Patient and/or nj1 family updated on plan of care and expected duration. Pain level reassessed. Patient is alert, oriented x 3, equal unlabored respirations, skin warm/dry/pink. 20:17 Reassessment: Patient appears in no apparent distress at this time. Patient and/or nj1 family updated on plan of care and expected duration. Pain level reassessed. Patient is alert, oriented x 3, equal unlabored respirations, skin warm/dry/pink. 20:55 Reassessment: Patient appears in no apparent distress at this time. Patient is alert, nj1 oriented x 3, equal unlabored respirations, skin warm/dry/pink. Vital Signs: 15:10 BP 163 / 99; Pulse 102; Resp 18 S; Pulse Ox 99% on R/A; Weight 99.79 kg (R); Height 6 aa5 ft. 2 in. (R); 16:00 BP 146 / 96; Pulse 88; Resp 16; Pulse Ox 100% ; Pain 4/10; nj1 17:44 BP 137 / 95; Pulse 85; Resp 16; Pulse Ox 100% on R/A; nj1 19:05 BP 139 / 83; Pulse 90; Resp 14; Pulse Ox 99% ; nj1 20:17 BP 138 / 96; Pulse 96; Resp 18; Pulse Ox 100% ; nj1 20:54 BP 135 / 89; Pulse 96; Resp 17; Pulse Ox 98% ; nj1 15:10 Body Mass Index 28.25 (99.79 kg, 187.96 cm) aa5 16:00 Pain Scale: Adult nj1 ED Course: 15:02 Patient arrived in ED. ts1 15:03 Timothy Joshi PA is PHCP. cp 15:03 Jones Villanueva MD is Attending Physician. cp 15:09 Arm band placed on. aa5 15:15 Triage completed. aa5 15:26 Jessica Peña, BELLA is Primary Nurse. nj1 15:51 Patient has correct armband on for positive identification. Bed in low position. Call nj1 light in reach. Provided Education on: call light, fall preautions. 16:07 XRAY Chest (1 view) In Process Unspecified. EDMS 16:09 Inserted saline lock: 20 gauge in right antecubital area, using aseptic technique. nj1 Blood collected. 16:53 EKG done, by ED staff, reviewed by Timothy ESPARZA. nj1 18:53 CT Chest For PE Angio In Process Unspecified. EDMS 20:45 Vikas Mccord DO is Referral Physician. cp 20:55 No provider procedures requiring assistance completed. IV discontinued, intact, nj1 bleeding controlled, Pressure dressing applied. Administered Medications: 16:25 Drug: Labetalol IV 10 mg IV at calculated rate once over 2 mins; For SBP greater than kj2 140. Hold for HR less than 60, notify provider. Route: IV; Rate: calculated rate; Infused Over: 2 mins; Site: right antecubital; 16:27 Follow up: Response: No adverse reaction; IV Status: Completed infusion nj1 17:44 Follow up: Response: No adverse reaction; Blood pressure is lowered nj1 16:26 Drug: Aspirin PO Chewable Tablet 324 mg PO once; 81 mg tablets x 4 Route: PO; kj2 17:45 Follow up: Response: No adverse reaction nj1 Medication: 20:55 VIS not applicable for this client. nj1 Outcome: 20:46 Discharge ordered by . cp 20:55 Discharged to home ambulatory, with family, nj1 20:55 Condition: stable 20:55 Discharge instructions given to patient, Instructed on discharge instructions, follow up and referral plans. Demonstrated understanding of instructions, follow-up care, 20:55 Patient left the ED. nj1 Signatures: Dispatcher [employer] Kristi Hughes, RN RN aa5 Timothy Joshi PA PA cp Jaco, Norma RN RN nj1 Namrata Cueva PAS PAS ts1 Ann Pedersen, RN RN kj2
[2024-02-04 21:17] VITALS: BP 135/89; O2SAT 98
--- NOTE | 2024-02-07 14:22 | EKG ---
Test Date: 2024-02-04 Test Time: 16:39:30 Painter Set: NEISHA MEASUREMENT RESULTS: Intervals: Rate: 83 NC: 138 QRSD: 112 QT: 358 QTc: 420 [place]: P: 49 NC: 138 QRS: 54 T: 46 INTERPRETIVE STATEMENTS: Normal sinus rhythm Normal ECG No previous ECG available for comparison Electronically Signed On 02-07-24 14:16:27 CDT by Levy Rios
== END 2024-02-04 20:55 | disposition home or self-care (01) ==
LOC: ER 15:00
DX: R07.9 Chest pain, unspecified (principal); R03.0 Elevated blood-pressure reading, without diagnosis of hypertension; E03.9 Hypothyroidism, unspecified
CPT/HCPCS: 85025; 80048; 36415; 83735; 85610; 85379; 80076; 84484 ×2; 80307; 71275; 71045; 96374; 99284; Q9967; 93005

== ENCOUNTER 2024-09-30 17:54 | Emergency (ER) | payer OTHER ==
--- OUTSIDE RECORDS SUMMARY | 2024-09-30 17:59 | XMS REPORT | Continuity of Care Document ---
Author Name Unknown Address [address] [place] [address] [place] [address] thconnect Address [address] [facility] [address] [place] [address] Care Team Providers Care Tax Attorney Name Role Phone FEDERICO ORDOÑEZ Attending Clinician Unavailable [id number] Attending Clinician Unavailable WILFREDO HOLLIDAY Attending Clinician UnavailLEORA Bautista Attending Clinician Unavailab le Payers Payer Name Policy Type Policy Number Effective Date Expirati on Date Source AETNA 2 [id number] 2022 00:00:00 Problems Condition Name Condition Details Condition Category Status Onset Date Resolution Date Last Treatment Date Treating Clinician Comments Source Well adult exam Well adult exam Disease Active 04-07 00:00: 00 Carlota Setankold - Externa l Elevated blood pressure reading in office without diagnosis of hypertensi on Elevated blood pressure reading in office without diagnosis of hypertensi on Disease Active 02-06 00:00: 00 Carlota Seybold - Externa l Overweight (BMI 25.0-29.9) Overweight (BMI 25.0-29.9) Disease Active - 00:00: 00 Carlota Seybold - Externa l Obesity Obesity Disease Active 04-09 00:00: 00 Carlota Seybold - Externa l Elevated liver function tests Elevated liver function tests Disease Active 2- 00:00: 00 Carlota Seybold - Externa l Attention deficit hyperactiv ity disorder (ADHD), predominan tly inattentiv e type Attention deficit hyperactiv ity disorder (ADHD), predominan tly inattentiv e type Disease Active 08-17 00:00: 00 Carlota Schneiderold - Externa l Acquired hypothyroi dism Acquired hypothyroi dism Disease Active 2021-08 00:00: 00 Carlota Schneiderold - Externa l Snoring Snoring Disease Active 2021-08 00:00: 00 Carlota Perdomoybold - Externa l Fatty liver disease, nonalcohol ic Fatty liver disease, nonalcohol ic Disease Active 08-09 00:00: 00 Overview: Formattin g of this note might be different from the original. Confirmed with US Carlota Schneiderold - Externa l Anxiety Anxiety Disease Active Carlota Perdomoybold - Externa l Allergies, Adverse Reactions, Alerts Allergy Name Allergy Type Status Severity Reaction(s) Onset Date Inactive Date Treating Clinician Comments Source Azithrom ycin Dihydrat e Propensi ty to adverse reaction s Active Other 2015-08 00:00: 00 MOC is not sure which one of her kids is allergic to this; Mom thinks it was other child who vomited with Zithromax Carlota Schneiderold - Externa l Cefdinir Propensi ty to adverse reaction s Active Rash 2015-08 00:00: 00 Carlota Schneiderold - Externa l Social History Social Habit Start Date Stop Date Quantity Comments Source Gender identity 2023-02-25 16:00:16 Identifies as male gender (finding) Carlota Flores - External Sexual orientation K tingy ybold - External History of Occupation Carlota Flores - External History of tobacco use Cigar Smoker Carlota Flores - External History SDOH Alcohol Frequency Carlota Copeland bold - External History SDOH Alcohol Std Drinks Carlota Perdomo ybold - External History SDOH Alcohol Binge Carlota Flores - External History of Social function 2024-04-07 00:00:00 2024-04-07 00:00:00 Carlota Flores - External Alcoholic beverage intake 2024-04-07 00:00:00 2024-04-07 00:00:00 Ex-drinker (finding) Carlota Flores - External Education 2024-04-07 00:00:00 2024-04-07 00:00:00 16 Carlota Schneiderold - External Alcohol intake 2023-07-26 00:00:00 2023-07-26 00:00:00 Current drinker of alcohol (finding) Carlota Chaves Alcohol Comment 2022-08-17 00:00:00 2022-08-17 00:00:00 social Carlota Reid External Sex 2022-05-04 13:19:28 2022-05-04 13:19:28 Male (finding) Carlota Chaves Sex assigned at 2002 00:00:00 2000 00:00:00 M Cralota Chaves Smoking Status Start Date Stop Date Source Tobacco smoking consumption unknown Carlota Chaves Ex-smoker 2024-04-07 00:00:00 2024-04-07 00:00:00 Carlota Chaves Occasional tobacco smoker 2022-08-17 00:00:00 Carlota Chaves Medications Ordered Medication Name Filled Medication Name Start Date Stop Date Current Medication? Ordering Clinician Indication Dosage Frequency Signature (SIG) Comments Components Source Amphetamine -Dextroamph etamine (ADDERALL XR, 20MG,) 20 MG oral Capsule 24 Hour Sustained Release 2023-08 00:00: 00 Yes [id number] 20mg Take 1 capsule (20 mg total) by mouth every morning. Carlota jack Fluoxetine HCl 10 MG oral Tablet 2023-08 00:00: 00 Yes [id number] 10mg QD Take 1 tablet (10 mg total) by mouth daily. Carlota jack Amphetamine -Dextroamph etamine (ADDERALL XR, 20MG,) 20 MG oral Capsule 24 Hour Sustained Release 04-25 00:00: 00 05-25 00:00 :00 No [id number] 20mg Take 1 capsule (20 mg total) by mouth every morning. Carlota jack Escitalopra m Oxalate 10 MG oral Tablet 8- 00:00: 00 05-25 00:00 :00 No [id number] 10mg QD Take 1 tablet (10 mg total) by mouth daily. Carlota jack Amphetamine -Dextroamph etamine (ADDERALL XR, 20MG,) 20 MG oral Capsule 24 Hour Sustained Release 2024-0 7-30 00:00: 00 Yes [id number] 20mg Take 1 capsule (20 mg total) by mouth every morning. Carlota jack Cephalexin 500 MG oral Tablet 6-27 00:00: 00 04-07 00:00 :00 No 1{tbl} Take 1 tablet by mouth every 12 hours. Carlota jack Amphetamine -Dextroamph etamine (ADDERALL XR, 20MG,) 20 MG oral Capsule 24 Hour Sustained Release 6-04 00:00: 00 Yes [id number] 20mg Take 1 capsule (20 mg total) by mouth every morning. Carlota jack Levothyroxi ne Sodium 100 MCG oral Tablet 4-26 00:00: 00 Yes [id number] 100ug QD Take 1 tablet (100 mcg total) by mouth daily. Carlota jack Amphetamine -Dextroamph etamine (ADDERALL XR, 20MG,) 20 MG oral Capsule 24 Hour Sustained Release 2022-08 2-18 00:00: 00 Yes [id number] 20mg Take 1 capsule (20 mg total) by mouth every morning. Carlota jack Amphetamine -Dextroamph etamine (ADDERALL XR, 20MG,) 20 MG oral Capsule 24 Hour Sustained Release 2022-08 1-12 00:00: 00 18 00:00 :00 No [id number] 20mg Take 1 capsule (20 mg total) by mouth every morning. Carlota jack Amphetamine -Dextroamph etamine (ADDERALL XR, 20MG,) 20 MG oral Capsule 24 Hour Sustained Release 9- 00:00: 00 Yes [id number] 20mg Take 1 capsule (20 mg total) by mouth every morning. Carlota jack Amphetamine -Dextroamph etamine (ADDERALL XR, 20MG,) 20 MG oral Capsule 24 Hour Sustained Release 7-20 00:00: 00 04-09 00:00 :00 No [id number] 20mg Take 1 capsule (20 mg total) by mouth every morning Carlota jack Levothyroxi ne Sodium 100 MCG oral Tablet 7-05 00:00: 00 Yes [id number] 100ug Take 1 tablet (100 mcg total) by mouth daily Carlota jack Amphetamine -Dextroamph etamine 20 MG oral Capsule 24 Hour Sustained Release 2-13 00:00: 00 Yes [id number] 20mg Take 1 capsule (20 mg total) by mouth every morning Carlota jack Amphetamine -Dextroamph etamine 10 MG oral Capsule 24 Hour Sustained Release 2-09 00:00: 00 09-21 00:00 :00 No [id number] 10mg Take 1 capsule (10 mg total) by mouth every morning Carlota jack Levothyroxi ne Sodium 100 MCG oral Tablet 1-10 00:00: 00 Yes [id number] 100ug Take 1 tablet (100 mcg total) by mouth daily Carlota jack Amphetamine -Dextroamph etamine 10 MG oral Capsule 24 Hour Sustained Release -09 00:00: 00 Yes [id number] 10mg Take 1 capsule (10 mg total) by mouth every morning Carlota jack Levothyroxi ne Sodium 100 MCG oral Tablet -09 00:00: 00 Yes [id number] 100ug Take 1 tablet (100 mcg total) by mouth daily Carlota jack Levothyroxi ne Sodium 100 MCG oral Tablet -09 00:00: 00 08-17 00:00 :00 No [id number] 50ug Take 0.5 tablets (50 mcg total) by mouth daily Carlota jack Thyroid 120 MG oral Tablet 2021-08 0 16:01: 35 05-18 00:00 :00 No 1{tbl} Take 1 tablet by mouth daily Carlota jack Thyroid 120 MG oral Tablet 2021-08 010 00:00: 00 Yes [id number] 1{tbl} Take 1 tablet by mouth daily Carlota jack Immunizations Ordered Immunization Name Filled Immunization Name Date Status Comments Source Influenza Virus Vaccine, No Preserv, age 6 months and up 2019-05-10 00:00:00 Completed Carlota Seybold - External Influenza Virus Vaccine, No Preserv, age 6 months and up 2019-05-10 00:00:00 Completed Carlota Seybold - External Influenza Virus Vaccine, No Preserv, age 6 months and up 2019-05-10 00:00:00 Completed Carlota Seybold - External Influenza Virus Vaccine, No Preserv, age 6 months and up 2019-05-10 00:00:00 Completed Carlota Seybold - External Meningococcal Vaccine- Conjugate(Menactra) 2018-11-24 00:00:00 Completed Carlota Seybold - External Meningococcal Vaccine- Conjugate(Menactra) 2018-11-24 00:00:00 Completed Carlota Seybold - External Meningococcal Vaccine- Conjugate(Menactra) 2018-11-24 00:00:00 Completed Carlota Seybold - External Meningococcal Vaccine- Conjugate(Menactra) 2018-11-24 00:00:00 Completed Carlota Seybold - External DTaP Unspecified 2013-10-02 00:00:00 Completed Carlota Seybold - External DTaP Unspecified 2013-10-02 00:00:00 Completed Carlota Seybold - External Meningococcal Vaccine- Conjugate(Menactra) 2013-10-02 00:00:00 Completed Carlota Perdomoybold - External Tdap- (Boostrix, Adacel) 2013-10-02 00:00:00 Completed Carlota Seybold - External DTaP Unspecified 2013-10-02 00:00:00 Completed Carlota Seybold - External Meningococcal Vaccine- Conjugate(Menactra) 2013-10-02 00:00:00 Completed Carlota Seybold - External Tdap- (Boostrix, Adacel) 2013-10-02 00:00:00 Completed Carlota Seybold - External Meningococcal Vaccine- Conjugate(Menactra) 2013-10-02 00:00:00 Completed Carlota Seybold - External Tdap- (Boostrix, Adacel) 2013-10-02 00:00:00 Completed Carlota Seybold - External DTaP Unspecified 2013-10-02 00:00:00 Completed Carlota Seybold - External Meningococcal Vaccine- Conjugate(Menactra) 2013-10-02 00:00:00 Completed Carlota Seybold - External Tdap- (Boostrix, Adacel) 2013-10-02 00:00:00 Completed Carlota Seybold - External Varicella Vaccine 2007-10-11 00:00:00 Completed Carlota Seybold - External Varicella Vaccine 2007-10-11 00:00:00 Completed Carlota Seybold - External Varicella Vaccine 2007-10-11 00:00:00 Completed Carlota Seybold - External Varicella Vaccine 2007-10-11 00:00:00 Completed Carlota Seybold - External Polio [...] - External DTaP 2006-10-05 00:00:00 Completed Carlota Perdomoybold - External HEPATITIS A- PEDI/ADOL 2006-03-02 00:00:00 Completed Carlota Seybold - External HEPATITIS A- PEDI/ADOL 2006-03-02 00:00:00 Completed Carlota Seybold - External HEPATITIS A- PEDI/ADOL 2006-03-02 00:00:00 Completed Carlota Seybold - External HEPATITIS A- PEDI/ADOL 2006-03-02 00:00:00 Completed Carlota Seybold - External HEPATITIS A- PEDI/ADOL 2005-08-31 00:00:00 Completed Carlota Perdomoybold - External Pneumococcal Vaccine, Conjugate 7 2005-08-31 00:00:00 Completed Carlota Seybold - External Pneumococcal Vaccine, Conjugate 13 2005-08-31 00:00:00 Completed Carlota Seybold - External HEPATITIS A- PEDI/ADOL 2005-08-31 00:00:00 Completed Carlota Perdomoybold - External Pneumococcal Vaccine, Conjugate 7 2005-08-31 00:00:00 Completed Carlota Seybold - External HEPATITIS A- PEDI/ADOL 2005-08-31 00:00:00 Completed Carlota Seybold - External Pneumococcal Vaccine, Conjugate 13 2005-08-31 00:00:00 Completed Carlota Seybold - External Pneumococcal Vaccine, Conjugate 7 2005-08-31 00:00:00 Completed Carlota Seybold - External HEPATITIS A- PEDI/ADOL 2005-08-31 00:00:00 Completed Carlota Perdomoybold - External Pneumococcal Vaccine, Conjugate 7 2005-08-31 00:00:00 Completed Carlota Seybold - External Pneumococcal Vaccine, Conjugate 13 2005-08-31 [...] Influenzae Type B 2004-03-10 00:00:00 Completed Carlota Schneiderold - External DTaP 2004-03-10 00:00:00 Completed Carlota Seybold - External HIB- Haemophilus Influenzae Type B 2004-03-10 00:00:00 Completed Carlota Perdomoybold - External DTaP Unspecified 2004-03-10 00:00:00 Completed Carlota Schneiderold - External HIB- Haemophilus Influenzae Type B 2004-03-10 00:00:00 Completed Carlota Perdomoybold - External DTaP 2004-03-10 00:00:00 Completed Carlota Flores - External MMR- Measles, Mumps, Rubella 2003-12-11 00:00:00 Completed Carlota Schneiderold - External MMR- Measles, Mumps, Rubella 2003-12-11 00:00:00 Completed Carlota Schneiderold - External MMR- Measles, Mumps, Rubella 2003-12-11 00:00:00 Completed Carlota Flores - External MMR- Measles, Mumps, Rubella 2003-12-11 00:00:00 Completed Carlota Schneiderold - External Polio Vaccine 2003-09-10 00:00:00 Completed Carlota Flores - External IPV- Inactivated Polio Vaccine 2003-09-10 00:00:00 Completed Carlota Flores - External Varicella Vaccine 2003-09-10 00:00:00 Completed Carlota Schneiderold - External Polio Vaccine 2003-09-10 00:00:00 Completed Carlota Flores - External IPV- Inactivated Polio Vaccine 2003-09-10 00:00:00 Completed Carlota Schneiderold - External Varicella Vaccine 2003-09-10 00:00:00 Completed Carlota Seybold - External Polio Vaccine 2003-09-10 00:00:00 Completed Carlota Schneiderold - External IPV- Inactivated Polio Vaccine 2003-09-10 00:00:00 Completed Carlota Schneiderold - External Varicella Vaccine 2003-09-10 00:00:00 Completed Carlota Setankold - External IPV- Inactivated Polio Vaccine 2003-09-10 00:00:00 Completed Carlota Schneiderold - External Varicella Vaccine 2003-09-10 00:00:00 Completed Carlota Flores - External Hepatitis B, Adolescent Or Pediatric 2003-06-07 00:00:00 Completed Carlota Seybold - External Hepatitis B, Adolescent Or Pediatric 2003-06-07 00:00:00 Completed Carlota Seybold - External Hepatitis B, Adolescent Or Pediatric 2003-06-07 00:00:00 Completed Carlota Seybold - External Hepatitis B, Adolescent Or Pediatric 2003-06-07 00:00:00 Completed Carlota Seybold - External DTaP [...] External DTaP Unspecified 2002 00:00:00 Completed Carlota Flores - External Hepatitis B, Adolescent Or Pediatric 2002 00:00:00 Completed Carlota Seybold - External HIB- Haemophilus Influenzae Type B 2002 00:00:00 Completed Carlota Schneiderold - External IPV- Inactivated Polio Vaccine 2002 [...] Adolescent Or Pediatric 2002 00:00:00 Completed Carlota Flores - External Hepatitis B, Adolescent Or Pediatric 2002 00:00:00 Completed Carlotadavid Schneiderold - External Hepatitis B, Adolescent Or Pediatric 2002 00:00:00 Completed Carlota [facility] - External Hepatitis B, Adolescent Or Pediatric 2002 00:00:00 Completed Carlota Schneiderold - External DTaP Unspecified Unknown Completed Jose Juan copeland Seold - External Influenza Virus Vaccine, No Preserv, age 6 months and up Unknown Completed [facility] eybold - External HEPATITIS A- PEDI/ADOL Unknown Completed Carlota Seold - External Hepatitis B, Adolescent Or Pediatric Unknown Completed Carlotadavid Schneiderold - External HIB- Haemophilus Influenzae Type B Unknown Completed Carlota Perdomolaurence bold - External Meningococcal Vaccine- Conjugate(Menactra) Unknown [facility] MMR- Measles, Mumps, Rubella Unknown Completed [facility] - External Pneumococcal Vaccine, Conjugate 7 Unknown Completed Carlota [facility] External IPV- Inactivated Polio Vaccine Unknown Completed Carlota [facility] External Tdap- (Boostrix, Adacel) Unknown Completed Carlota [facility] - External Varicella Vaccine Unknown Completed Sanjay shaw ybold - External DTaP Unknown Completed Carlota Selaurence reed - External Pneumococcal Vaccine, Conjugate 13 Unknown Completed Carlota [facility] External Polio Vaccine Unknown Completed Carlota [facility] - External Covid-19 Vaccine (Finovera) Unknown Completed [facility] - External Covid-19 Vaccine (Rip van Wafels), Mrna-lnp, Fredy Protein, Pf, 30mcg/0.3ml,IM Unknown Completed Carlota Jasso d - External DTaP Unspecified Unknown Completed Jose Juan copeland [facility] - External Influenza Virus Vaccine, No Preserv, age 6 months and up Unknown Completed [facility] eybold - External HEPATITIS A- PEDI/ADOL Unknown Completed Carlota [facility] - External Hepatitis B, Adolescent Or Pediatric Unknown Completed Carlota [facility] - External HIB- Haemophilus Influenzae Type B Unknown Completed Carlota Selaurence brianna - External Meningococcal Vaccine- Conjugate(Menactra) Unknown Completed [facility] eybold - External MMR- Measles, Mumps, Rubella Unknown [facility] Pneumococcal Vaccine, Conjugate 7 Unknown Completed [facility] - External IPV- Inactivated Polio Vaccine Unknown Completed [facility] - External Tdap- (Boostrix, Adacel) Unknown Completed [facility] - External Varicella Vaccine Unknown [facility] Unknown Completed [facility] bold - External Pneumococcal Vaccine, Conjugate 13 Unknown Completed [facility] - External Polio Vaccine Unknown Completed [facility] - External Covid-19 Vaccine (Nereida) Unknown Completed [facility] External Covid-19 Vaccine (Pfizer), Mrna-lnp, Fredy Protein, Pf, 30mcg/0.3ml,IM Unknown Completed [facility] d - External DTaP Unspecified Unknown Completed [facility] External Influenza Virus Vaccine, No Preserv, age 6 months and up Unknown [facility] HEPATITIS A- PEDI/ADOL Unknown Completed [facility] External Hepatitis B, Adolescent Or Pediatric Unknown Completed [facility] External HIB- Haemophilus Influenzae Type B Unknown Completed [facility] External Meningococcal Vaccine- Conjugate(Menactra) Unknown Completed [facility] External MMR- Measles, Mumps, Rubella Unknown Completed [facility] External Pneumococcal Vaccine, Conjugate 7 Unknown Completed [facility] External IPV- Inactivated Polio Vaccine Unknown Completed [facility] - External Tdap- (Boostrix, Adacel) Unknown Completed [facility] External Varicella Vaccine Unknown Completed [facility] Seybold - External DTaP Unknown Completed [facility] - External Pneumococcal Vaccine, Conjugate 13 Unknown Completed [facility] - External Polio Vaccine Unknown Completed [facility] External Covid-19 Vaccine (Finovera) Unknown Completed [facility] External Covid-19 Vaccine (Pfizer), Mrna-lnp, Fredy Protein, Pf, 30mcg/0.3ml,IM [facility] Unknown Com[facility] External Influenza Virus Vaccine, No Preserv, age 6 months and up Unknown Completed [facility] eybold External HEPATITIS A- PEDI/ADOL Unknown Completed [facility] External Hepatitis B, Adolescent Or Pediatric Unknown Completed [facility] External HIB- Haemophilus Influenzae Type B Unknown Completed Carlota Sey bold - External Meningococcal Vaccine- Conjugate(Menactra) Unknown Completed Carlota mariebold - External MMR- Measles, Mumps, Rubella Unknown Completed Carlota Flores - External Pneumococcal Vaccine, Conjugate 7 Unknown Completed Carlota Flores - External IPV- Inactivated Polio Vaccine Unknown Completed Carlota Flores - External Tdap- (Boostrix, Adacel) Unknown Completed Carlota Flores - External Varicella Vaccine Unknown Completed Sanjay sonalcynthia Perdomoybold - External DTaP Unknown Completed Carlota reed - External Pneumococcal Vaccine, Conjugate 13 Unknown Completed Carlota Flores - External Polio Vaccine Unknown Completed Carlota Flores - External Covid-19 Vaccine (Finovera) Unknown Completed Carlota Flores - External Covid-19 Vaccine (Rip van Wafels), Mrna-lnp, Fredy Protein, Pf, 30mcg/0.3ml,IM Unknown Completed Carlota Jasso d - External Vital Signs Vital Name Observation Time Observation Value Comments S ource Systolic blood pressure 2024-04-07 20:25:00 136 mm[Hg] Carlota Knowles ld - External Diastolic blood pressure 2024-04-07 20:25:00 81 mm[Hg] Carlota Knowles ld - External Heart rate 2024-04-07 20:25:00 85 /min Jose Juanse laurence Flores - External Body temperature 2024-04-07 20:25:00 36.56 Cate Carlota Flores - External Respiratory rate 2024-04-07 20:25:00 19 /min Carlota Flores - External Body height 2024-04-07 20:25:00 185.4 cm Elvia marie Seybold - External Body weight 2024-04-07 20:25:00 103.874 kg Elvia marie Seybold - External BMI 2024-04-07 20:25:00 30.21 kg/m2 Elvia marie Seybmarlon - External Oxygen saturation in Arterial blood by Pulse oximetry 2024-04-07 20:25:00 100 /min Carlota Knowles ld - External Systolic blood pressure 2024-02-07 13:12:00 138 mm[Hg] Cralota Knowles ld - External Diastolic blood pressure 2024-02-07 13:12:00 88 mm[Hg] Carlota Knowles ld - External Heart rate 2024-02-07 13:12:00 106 /min Kelse y Seybold - External Body temperature 2024-02-07 13:12:00 37.06 Cate Carlota Seybold - External Respiratory rate 2024-02-07 13:12:00 20 /min Carlota Seybold - External Body height 2024-02-07 13:12:00 185.4 cm Elvia ey Seybold - External Body weight 2024-02-07 13:12:00 106.255 kg Elvia ey Seybold - External BMI 2024-02-07 13:12:00 30.91 kg/m2 Elvia ey Seybold - External Oxygen saturation in Arterial blood by Pulse oximetry 2024-02-07 13:12:00 98 /min Carlota Seybo ld - External Systolic blood pressure 2023-07-26 19:22:00 140 mm[Hg] [...] 99 /min Carlota Seybo ld - External Systolic blood pressure 2023-04-09 18:21:00 108 mm[Hg] Carlota Seybo ld - External Diastolic blood pressure 2023-04-09 18:21:00 69 mm[Hg] Carlota Seybo ld - External Heart rate 2023-04-09 18:21:00 82 /min Kelse y Seybold - External Body temperature 2023-04-09 18:21:00 35.83 Cate Carlota Seybold - External Respiratory rate 2023-04-09 18:21:00 16 /min Carlota Seybold - External Body height 2023-04-09 18:21:00 185.4 cm Elvia ey Seybold - External Body weight 2023-04-09 18:21:00 101.606 kg Elvia ey Seybold - External BMI 2023-04-09 18:21:00 29.55 kg/m2 Elvia ey Seybold - External Oxygen saturation in Arterial blood by Pulse oximetry 2023-04-09 18:21:00 98 /min Carlota Perdomoybo ld - External Systolic blood pressure 2022-08-17 19:36:00 134 mm[Hg] Carlota Seybo ld - External Diastolic blood pressure 2022-08-17 19:36:00 72 mm[Hg] Carlota Seybo ld - External Heart rate 2022-08-17 19:36:00 76 /min Gabriel y Seybold - External Body temperature 2022-08-17 19:36:00 36.89 Cate Carlota Seybold - External Respiratory rate 2022-08-17 19:36:00 16 /min Carlota Seybold - External Body height 2022-08-17 19:36:00 185.4 cm Elvia ey Seybold - External Body weight 2022-08-17 19:36:00 110.224 kg Elvia ey Seybold - External BMI 2022-08-17 19:36:00 32.06 kg/m2 Elvia ey Seybold - External Encounters Start Date/Time End Date/Time Encounter Type Admission Type Attending [facility] Care Department Encounter ID Source 2024-09-14 00:00:00 2024-09-14 00:00:00 Outpatient FEDERICO ORDOÑEZ [id number] Carlota suzanna 2024-08-03 00:00:00 2024-08-03 00:00:00 Outpatient FEDERICO ORDOÑEZ [id number] Carlota Flores 2024-07-25 00:00:00 2024-07-25 00:00:00 Outpatient FEDERICO ORDOÑEZ [id number] Carlota suzanna 2024-06-26 00:00:00 2024-06-26 00:00:00 Outpatient PREZAS, FEDERICO NOELSEY [id number] [facility] 2024-05-25 15:00:00 2024-05-25 15:00:00 Outpatient PREZAS, FEDERICO FRIEDMAN CARLOTA [id number] [facility] 2024-04-25 00:00:00 2024-04-25 00:00:00 Outpatient PREZAS, FEDERICO FRIEDMAN CARLOTA [id number] [facility] 2024-04-25 00:00:00 2024-04-25 00:00:00 Outpatient PREZAS, FEDERICO FRIEDMAN CARLOTA [id number] [facility] 2024-04-24 00:00:00 2024-04-24 00:00:00 Outpatient PREZAS, FEDERICO FRIEDMAN CARLOTA [id number] [facility] 2024-04-24 00:00:00 2024-04-24 00:00:00 Outpatient PREZAS, FEDERICO FRIEDMAN CARLOTA [id number] [facility] 2024-04-24 00:00:00 2024-04-24 00:00:00 Outpatient PREZAS, FEDERICO FRIEDMAN CARLOTA [id number] [facility] 2024-04-11 00:00:00 2024-04-11 00:00:00 Outpatient PREZAS, FEDERICO FRIEDMAN [place] [id number] [facility] 2024-04-07 16:15:00 2024-04-07 16:15:00 Outpatient LABFarnaz NOELDAVID FRIEDMAN [id number] [facility] 2024-04-07 15:30:00 2024-04-07 15:30:00 Outpatient PREZAS, FEDERICO FRIEDMAN [place] [id number] [facility] 2024-03-23 00:00:00 2024-03-23 00:00:00 Outpatient PREZAS, FEDERICO [place] FRIEDMAN [id number] [facility] 2024-03-06 00:00:00 2024-03-06 00:00:00 Outpatient PREZAS, FEDERICO [place] FRIEDMAN [id number] [facility] 2024-02-17 15:30:00 2024-02-17 15:30:00 Outpatient PREZAS, FEDERICO FRIEDMAN [place] [id number] [facility] 2024-02-14 16:00:00 2024-02-14 16:00:00 Outpatient WILFREDO HOLLIDAY [id number] [facility] 2024-02-07 08:30:00 2024-02-07 08:30:00 Outpatient BRI, LEORA FRIEDMAN [place] [id number] [facility] 2024-02-04 00:00:00 2024-02-04 00:00:00 Outpatient BRI, LEORA FRIEDMAN [place] [id number] [facility] 2024-01-10 00:00:00 2024-01-10 00:00:00 Outpatient PREZAS, FEDERICO FRIEDMAN [place] [id number] [facility] 2024-01-04 00:00:00 2024-01-04 00:00:00 Outpatient PREZAS, FEDERICO FRIEDMAN [place] [id number] [facility] 2024-01-04 00:00:00 2024-01-04 00:00:00 Outpatient PREZAS, FEDERICO FRIEDMAN [place] [id number] [facility] 2024-01-03 00:00:00 2024-01-03 00:00:00 Outpatient PREZAS, FEDERICO FRIEDMAN [place] [id number] [facility] 2023-12-29 15:30:00 2023-12-29 15:30:00 Outpatient PREZAS, FEDERICO CARLOTA [place] [id number] [facility] 2023-12-03 00:00:00 2023-12-03 00:00:00 Outpatient PREZAS, FEDERICO [place] FRIEDMAN [id number] [facility] 2023-12-03 00:00:00 2023-12-03 00:00:00 Outpatient PREZAS, FEDERICO [place] FRIEDMAN [id number] [facility] 2023-11-02 00:00:00 2023-11-02 00:00:00 Outpatient PREZAS, FEDERICO [place] FRIEDMAN [id number] [facility] 2023-10-15 09:30:00 2023-10-15 09:30:00 Outpatient PREZAS, FEDERICO FRIEDMAN [place] [id number] [facility] 2023-10-04 00:00:00 2023-10-04 00:00:00 Outpatient PREZAS, FEDERICO FRIEDMAN [place] [id number] [facility] 2023-09-28 00:00:00 2023-09-28 00:00:00 Outpatient PREZAS, FEDERICO FRIEDMAN [place] [id number] [facility] 2023-09-28 00:00:00 2023-09-28 00:00:00 Outpatient PREZAS, FEDERICO FRIEDMNA [place] [id number] [facility] 2023-09-01 00:00:00 2023-09-01 00:00:00 Outpatient PREZAS, FEDERICO [place]LOTA [place] [id number] [facility] 2023-07-26 13:30:00 2023-07-26 13:30:00 Outpatient PREZAS, FEDERICO [place] FRIEDMAN [id number] [facility] 2023-06-17 00:00:00 2023-06-17 00:00:00 Outpatient PREZAS, FEDERICO FRIEDMAN [place] [id number] [facility] 2023-05-17 00:00:00 2023-05-17 00:00:00 Outpatient PREZAS, FEDERICO [place] FRIEDMAN [id number] [facility] 2023-05-15 00:00:00 2023-05-15 00:00:00 Outpatient PREZAS, FEDERICO [place] FRIEDMAN [id number] [facility] 2023-04-13 00:00:00 2023-04-13 00:00:00 Outpatient PREZAS, FEDERICO [place] FRIEDMAN [id number] [facility] 2023-04-09 14:15:00 2023-04-09 14:15:00 Outpatient LABFarnaz [place] FRIEDMAN [id number] [facility] 2023-04-09 13:30:00 2023-04-09 13:30:00 Outpatient PREZAS, FEDERICO [place] FRIEDMAN [id number] [facility]23-02-25 00:00:00 2023-02-25 00:00:00 Outpatient PREZAS, FEDERICO FRIEDMAN [place] [id number] [facility] 2023-02-10 00:00:00 2023-02-10 00:00:00 Outpatient PREZAS, FEDERICO FRIEDMAN [place] [id number] [facility] 2022-12-25 00:00:00 2022-12-25 00:00:00 Outpatient PREZAS, FEDERICO FRIEDMAN [place] [id number] [facility] 2022-11-25 00:00:00 2022-11-25 00:00:00 Outpatient PREZAS, FEDERICO FRIEDMAN [place] [id number] [facility] 2022-11-24 00:00:00 2022-11-24 00:00:00 Outpatient PREZAS, FEDERICO [place] [id number] [facility] 2022-11-21 00:00:00 2022-11-21 00:00:00 Outpatient PREZAS, FEDERICO [place] FRIEDMAN [id number] [facility] 2022-10-22 10:15:00 2022-10-22 10:15:00 Outpatient LABFarnaz [place] [id number] [facility] 2022-10-22 00:00:00 2022-10-22 00:00:00 Outpatient PREZAS, FEDERICO [place] [id number] [facility] 2022-10-22 00:00:00 2022-10-22 00:00:00 Outpatient PREZAS, FEDERICO [place] FRIEDMAN [id number] [facility] 2022-09-21 09:00:00 2022-09-21 09:00:00 Outpatient PREZAS, FEDERICO [place] FRIEDMAN [id number] [facility] 2022-09-17 00:00:00 2022-09-17 00:00:00 Outpatient PREZAS, FEDERICO [place] FRIEDMAN [id number] [facility] 2022-09-16 00:00:00 2022-09-16 00:00:00 Outpatient PREZAS, FEDERICO [place] FRIEDMAN [id number] [facility] 2022-09-16 00:00:00 2022-09-16 00:00:00 Outpatient PREZAS, FEDERICO [place] [id number] [facility] 2022-09-16 00:00:00 2022-09-16 00:00:00 Outpatient PREZAS, FEDERICO FRIEDMAN [id number] [facility] 2022-09-11 16:15:00 2022-09-11 16:15:00 Outpatient PREZAS, FEDERICO FRIEDMAN [id number] [facility] 2022-08-18 00:00:00 2022-08-18 00:00:00 Outpatient PREZAS, FEDERICO FRIEDMAN [id number] [facility] 2022-08-18 00:00:00 2022-08-18 00:00:00 Outpatient PREZAS, FEDERICO FRIEDMAN [id number] [facility] 2022-08-17 14:15:00 2022-08-17 14:15:00 Outpatient LABFarnaz FRIEDMAN [id number] [facility] 2022-08-17 13:45:00 2022-08-17 13:45:00 Outpatient PREZAS, FEDERICO FRIEDMAN [id number] [facility] 2022-05-18 15:30:00 2022-05-18 15:30:00 Outpatient PREZAS, FEDERICO NOELSEY [id number] [facility] 2022-05-15 14:15:00 2022-05-15 14:15:00 Outpatient PREZASFEDERICO [place] [id number] [facility] 2022-05-11 08:15:00 2022-05-11 08:15:00 Outpatient PREZASFEDERICO [place] [id number] [facility] Notes Date/Time Note Provider Source 2024-02-07 08:15:27 Chief Complaint Patient presents with ER F/U ER follow up for BP 02/04/24 Lisa Ernst LVN [facility]
[2024-09-30 19:04] LABS: Specific Gravity 1.011 (1.005-1.030); Sqamous Epithelial None Seen /HPF (None Seen); Urine Bacteria None Seen /HPF (<20); Urine Bilirubin NEGATIVE (Negative); Urine Blood Negative (Negative); Urine Clarity Clear (Clear); Urine Color Colorless (Yellow); Urine Culture Reflex Order NOT NEEDED; Urine Glucose NEGATIVE (Negative); Urine Ketones NEGATIVE (Negative); Urine Micro Reflex YN NO BILL MICROSCOPIC; Urine Nitrite NEGATIVE (Negative); Urine Protein NEGATIVE (Negative); Urine RBC <5 /HPF (None Seen); Urine Urobilinogen Normal (Normal); Urine WBC <5 /HPF (<5); Urine pH 6.5 (5.0-7.0)
--- NOTE | 2024-09-30 19:40 | RAD REPORT ---
EXAMINATION: ULTRASOUND DUPLEX OF SCROTUM AND TESTICLES CLINICAL INDICATION: Male, 24 years, PAIN TECHNIQUE: Duplex scan of the scrotal contents was performed including real-time color and spectral D oppler ultrasonography with arterial inflow and venous outflow. COMPARISON: 10/10/2020 FINDINGS: RIGHT TESTICLE AND EPIDIDYMIS: The right testicle is normal in size, measuring 3.7 x 2.5 x 3.4 cm. Normal, homogeneous echotexture with no focal lesion seen. The right epididymis is normal. Color Doppler flow in the right testicle is normal. Normal arterial and venous spectral Doppler waveforms are identified. No hydrocele. Minimal varicocele. LEFT TESTICLE AND EPIDIDYMIS: The left testicle is normal in size, measuring 3.6 x 2.4 x 4.2 cm. Normal, homogeneous echotexture with no focal lesion seen. The left epididymis is normal. Color Doppler flow in the left testicle is normal. Normal arterial and venous spectral Doppler waveforms are identified. No hydrocele. Small varicocele. INGUINAL CANAL: Small left inguinal fat-containing hernia. ADDITIONAL FINDINGS: None. IMPRESSION: Mild varicoceles more notable on the left. Small left inguinal fat-containing hernia. No other acute or significant abnormalities.
--- NOTE | 2024-09-30 19:49 | ER ---
Nurse's Notes [facility] Name: Corey Marti Age: 24 yrs Sex: Male : 2000 Arrival Date: 09/30/2024 Time: 17:54 Bed 19 Private MD: Diagnosis: Left testicular pain- mild varicocele, small inguinal fat-containing hernia Presentation: 09/30 18:00 Chief complaint: Patient states: left testicle discomfort. Coronavirus screen: Client kj2 denies travel out of the [place] in the last 14 days. Ebola Screen: No symptoms or risks identified at this time. Initial Sepsis Screen: Does the patient meet any 2 criteria? No. Patient's initial sepsis screen is negative. Does the patient have a suspected source of infection? No. Patient's initial sepsis screen is negative. Risk Assessment: Do you want to hurt yourself or someone else? Patient reports no desire to harm self or others. Onset of symptoms was September 30, 2024. 18:00 Method Of Arrival: Ambulatory kj2 18:00 Acuity: HENRIQUE 3 kj2 Triage Assessment: 18:30 General: Appears in no apparent distress. Behavior is cooperative. Pain: Complains of kj2 pain in left testicle pain Pain currently is 6 out of 10 on a pain scale. Neuro: Level of Consciousness is awake, Oriented to person, place, time, situation. Cardiovascular: Patient's skin is warm and dry. Respiratory: Airway is patent Respiratory effort is even, unlabored. GI: No signs and/or symptoms were reported involving the gastrointestinal system. : No signs and/or symptoms were reported regarding the genitourinary system. Historical: - Allergies: 18:38 No Known Allergies; kj2 - Home Meds: 18:34 Adderall XR Oral [Active]; levothyroxine oral [Active]; kj2 - Immunization history:: Adult Immunizations unknown. - Infectious Disease History:: Denies. - Social history:: Smoking status: Patient denies any tobacco usage or history of. Screenin:15 [facility] ED Fall Risk Assessment (Adult) History of falling in the last 3 months, kj2 including since admission No falls in past 3 months (0 pts) Confusion or Disorientation No (0 pts) Intoxicated or Sedated No (0 pts) Impaired Gait No (0 pts) Mobility Assist Device Used No (0 pt) Altered Elimination No (0 pt) Score/Fall Risk Level 0 - 2 = Low Risk Maintained a safe environment, Hourly rounding (assess needs \T\ fall precautionary measures) done. Abuse screen: Denies threats or abuse. Denies injuries from another. Nutritional screening: No deficits noted. Tuberculosis screening: No symptoms or risk factors identified. Assessment: 17:15 General: see triage assessment. kj2 18:15 Reassessment: Patient appears in no apparent distress at this time. Patient and/or kj2 family updated on plan of care and expected duration. Pain level reassessed. Patient is alert, oriented x 3, equal unlabored respirations, skin warm/dry/pink. 19:17 Reassessment: Patient appears in no apparent distress at this time. Patient and/or kj2 family updated on plan of care and expected duration. Pain level reassessed. Patient is alert, oriented x 3, equal unlabored respirations, skin warm/dry/pink. 20:09 Reassessment: Patient appears in no apparent distress at this time. Patient and/or kj2 family updated on plan of care and expected duration. Pain level reassessed. Patient is alert, oriented x 3, equal unlabored respirations, skin warm/dry/pink. Vital Signs: 17:30 BP 127 / 75; Pulse 70; Resp 20; Temp 98; Pulse Ox 100% on R/A; kj2 18:00 Weight 104.33 kg; Height 6 ft. 2 in. ; kj2 18:58 BP 129 / 72; Pulse 70; Resp 18; Pulse Ox 100% on R/A; kj2 20:09 BP 125 / 74; Pulse 81; Resp 20; Temp 98; Pulse Ox 100% ; kj2 18:00 Body Mass Index 29.53 (104.33 kg, 187.96 cm) kj2 ED Course: 17:15 Patient has correct armband on for positive identification. Placed in gown. Bed in low kj2 position. Call light in reach. Side rails up X 1. Adult w/ patient. Provided Education on: call light. 17:15 Arm band placed on Patient placed in an exam room, on a stretcher. kj2 17:57 Patient arrived in ED. im 18:00 Elaine Zayas PA-C is PHCP. sb4 18:00 Timothy Coto MD is Attending Physician. sb4 18:28 Ann Pedersen, RN is Primary Nurse. kj2 18:30 Triage completed. kj2 18:39 US Scrotum Testicles In Process Unspecified. EDMS 19:07 GC (Harrison/Chl) Probe CX/URE (Do not order if pt is under 13, order Culture instead) Sent. kj2 19:48 Rl Gonzalez MD is Referral Physician. sb4 20:09 No provider procedures requiring assistance completed. Patient did not have IV access kj2 during this emergency room visit. Administered Medications: No medications were administered Medication: 18:34 VIS not applicable for this client. kj2 Outcome: 19:49 Discharge ordered by MD. sb4 20:10 Discharged to home ambulatory, with family, kj2 20:10 Condition: stable 20:10 Discharge instructions given to patient, family, Instructed on discharge instructions, follow up and referral plans. Demonstrated understanding of instructions, follow-up care, 20:11 Patient left the ED. kj2 Signatures: Dispatcher [employer] EDMS Elaine Zayas, PAFranklinC PA-C sb4 Indigo Basilio Ann Pedersen, RN RN kj2 Corrections: (The following items were deleted from the chart) 18:59 18:30 BP 134 / 76; Pulse 70bpm; Resp 20bpm; Pulse Ox 100% RA; kj2 kj2
--- NOTE | 2024-09-30 19:49 | EDPHYS ---
Physician Documentation [facility] Name: Corey Marti Age: 24 yrs Sex: Male : 2000 Arrival Date: 09/30/2024 Time: 17:54 Bed 19 Private MD: ED Physician Timothy Coto HPI: 09/30 18:12 This 24 yrs old Male presents to ER via Unassigned with complaints of Testicular sb4 Problem, Testicular Pain. 18:12 left testicular pain x 2 days. he states that it appears inverted. reports pain is 2/10 sb4 on pain scale. 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 denies any swelling, redness, or warmth. no trauma . Historical: - Allergies: 18:38 No Known Allergies; kj2 - Home Meds: 18:34 Adderall XR Oral [Active]; levothyroxine oral [Active]; kj2 - Immunization history:: Adult Immunizations unknown. - Infectious Disease History:: Denies. - Social history:: Smoking status: Patient denies any tobacco usage or history of. ROS: 18:13 Constitutional: Negative for fever, chills, and weight loss, sb4 18:13 : Positive for testicular pain 18:13 All other systems are negative, Exam: 18:17 Constitutional: This is a well developed, well nourished patient who is awake, alert, sb4 and in no acute distress. Head/Face: Normocephalic, atraumatic. Eyes: Extra-ocular motions intact. Periorbital areas with no swelling, redness, or edema. ENT: Mucous membranes moist. Respiratory: No increased work of breathing, no retractions or nasal flaring. 19:50 : Male external genitalia: examination deferred, patient refused, sb4 Vital Signs: 17:30 BP 127 / 75; Pulse 70; Resp 20; Temp 98; Pulse Ox 100% on R/A; kj2 18:00 Weight 104.33 kg; Height 6 ft. 2 in. ; kj2 18:58 BP 129 / 72; Pulse 70; Resp 18; Pulse Ox 100% on R/A; kj2 20:09 BP 125 / 74; Pulse 81; Resp 20; Temp 98; Pulse Ox 100% ; kj2 18:00 Body Mass Index 29.53 (104.33 kg, 187.96 cm) kj2 MDM: 18:01 Medical Screening Exam initiated sb4 19:50 Data reviewed: vital signs, nurses notes, radiologic studies, I have discussed the sb4 patient's presentation/case with the attending Emergency Department Physician; and as a result, I will discharge patient. Counseling: I had a detailed discussion with the patient and/or guardian regarding the historical points, exam findings, and any diagnostic results supporting the discharge/admit diagnosis, radiology results, the need for outpatient follow up, for definitive care, to return to the emergency department if symptoms worsen or persist or if there are any questions or concerns that arise at home. 09/30 18:13 Order name: UAM; Complete Time: 19:05 sb4 09/30 18:13 Order name: GC (Harrison/Chl) Probe CX/URE (Do not order if pt is under 13, order Culture sb4 instead) 09/30 18:00 Order name: US Scrotum Testicles; Complete Time: 19:41 sb4 Administered Medications: No medications were administered Disposition Summary: 09/30/24 19:49 Discharge Ordered Notes: Location: Home sb4 Problem: an ongoing problem sb4 Symptoms: are unchanged sb4 Condition: Stable sb4 Diagnosis - Left testicular pain- mild varicocele, small inguinal fat-containing hernia sb4 Followup: sb4 - With: Rl Gonzalez MD - When: As needed - Reason: Recheck today's complaints, Re-evaluation by your physician Discharge Instructions: - Discharge Summary Sheet sb4 - Varicocele sb4 - Inguinal Hernia, Adult sb4 Forms: - Patient Portal Instructions sb4 - Leadership Thank You Letter sb4 Addendum: 10/02/2024 12:34 Co-signature as Attending Physician, Timothy Coto MD I agree with the assessment and c lam plan of care. Signatures: Dispatcher [employer] Timothy Barber MD MD cha Brown, Sophia PAFranklinC PAFranklinC sb4 Ann Pedersen, RN RN kj2
[2024-09-30 20:37] VITALS: O2SAT 100
[2024-09-30 20:38] VITALS: BP 125/74; TEMP 98
[2024-10-03 12:48] LABS: C.trachomatis RNA,TMA Not Detected (Not Detected); N.gonorrhoeae RNA,TMA Not Detected (Not Detected)
== END 2024-09-30 20:11 | disposition home or self-care (01) ==
LOC: ER 17:54
DX: I86.1 Scrotal varices (principal); K40.90 Unilateral inguinal hernia, without obstruction or gangrene, not specified as recurrent
CPT/HCPCS: 76870; 81001; 87490; 87590; 99283